=== PATIENT | female | born 1985 | race Caucasian/White ===

== ENCOUNTER 2020-03-30 07:59 | Emergency (ER) | payer OTHER ==
[~2020-03-30] VITALS: Ht 167.6 cm; Wt 74.8 kg
[2020-03-30] MEDS ORDERED: TRAZ150T57 PO (08:36)
[2020-03-30] MEDS ORDERED: BENADRYL25 MG (08:36)
[2020-03-30] MEDS ORDERED: BUPRENORPHINE HC8 MG PO (08:37)
[2020-03-30] MEDS ORDERED: Ciloxan5 ML BOTHEYES (10:02)
[2020-03-30] MEDS ORDERED: KETOROLAC TROMET5 ML RIGHTEYE (10:02)
[2020-04-03] MEDS ORDERED: Macrobid 100 M100 MG PO (01:03)
== END 2020-03-30 10:17 | disposition home or self-care (01) ==
LOC: ER 07:59
DX: H10.9 Unspecified conjunctivitis (principal); H18.821 Corneal disorder due to contact lens, right eye; F17.210 Nicotine dependence, cigarettes, uncomplicated; Z88.0 Allergy status to penicillin
CPT/HCPCS: 99283